=== PATIENT | female | born 1990 | race African-American/Black ===

== ENCOUNTER 2017-04-17 21:27 | Emergency (ER) | payer SELFPAY ==
[~2017-04-17] VITALS: Ht 170.2 cm; Wt 63.5 kg
[2017-04-17 21:55] LABS: Basophils # (auto) 0 uL; Basophils % (auto) 0.3 % (0.0-2.0); DEFINITIVE VIEW TRANSMISSION; Eosinophils # (auto) 0.2 uL; Eosinophils % (auto) 1.6 % (0.0-7.0); Hematocrit 39.2 % (36.0-46.0); Hemoglobin 12.5 g/dL (12.2-16.2); Lymphocytes # (auto) 3.1 uL; Lymphocytes % (auto) 20.6 % (10.0-50.0); Mean Corpuscular Hemoglobin 24.8 pg (28.0-32.0); Mean Corpuscular Volume 77.7 fL (80.0-100.0); Mean Platelet Volume 9.8 fL (7.4-10.4); Monocytes # (auto) 0.5 uL; Monocytes % (auto) 3.4 % (0.0-12.0); Neutrophils % (auto) 74.1 % (37.0-80.0); Platelet Count (auto) 273 10^3/uL (140-450); Red Cell Distribution Width 18.9 % (11.6-16.0); White Blood Cell 14.9 10^3/uL (4.4-10.8)
[2017-04-17 22:11] LABS: Albumin 4.1 g/dL (3.4-5.0); BUN/Creatinine Ratio 15.9; Calcium 9.7 mg/dL (8.5-10.1); Potassium 3.6 mmol/L (3.5-5.1)
[2017-04-17 22:14] LABS: Bilirubin, Total 0.4 mg/dL (0.2-1.0); Total Protein 9.1 g/dL (6.4-8.2)
[2017-04-17 22:34] LABS: Urine Bilirubin Negative (Negative); Urine Blood 2+ /uL (Negative); Urine Color Yellow (Yellow); Urine Glucose Normal (Normal); Urine Ketone Negative (Negative); Urine Mucus MODERATE (None Seen); Urine Nitrite Negative (Negative); Urine RBC 163 /hpf (0 - 4); Urine Squamous Epithelial Cell FEW /hpf (<5); Urine Urobilinogen Normal (Negative)
[2017-04-18] MEDS ORDERED: cefTRIAXone SOD 1,000 MG VL IM ONE (01:00)
[2017-04-18 01:11] VITALS: BP 142/93
== END 2017-04-18 01:10 | disposition home or self-care (01) ==
LOC: ER 21:27
DX: N75.1 Abscess of Bartholin's gland (principal)
CPT/HCPCS: 36415; 56420; 80053; 81001; 84702; 85025; 96372; 99284; J0696